=== PATIENT | female | born 1955 | race Caucasian/White ===

== ENCOUNTER 2016-12-05 05:33 | Day surgery (SDC) | payer OTHER ==
[2016-12-05] MEDS ORDERED: LR 1,000 ML ONE (05:57)
[2016-12-05] MEDS ORDERED: PEPCID ONE (05:57)
[2016-12-05] MEDS ORDERED: REGLAN ONE (05:57)
[2016-12-05] MEDS ORDERED: AQUAPHOR OINTMENT TOP SCH (07:00)
[2016-12-05] MEDS ORDERED: BSS OPHTH SOLN ONE (07:07)
[2016-12-05] MEDS ORDERED: CLINDAMYCIN 600 MG/NS 50 ML ONE (07:42)
[2016-12-05] MEDS ORDERED: NORCO-10 ONE (09:54)
[2016-12-05 10:36] VITALS: BP 148/73
--- NOTE | 2016-12-05 11:06 | OPERATIVE NOTE ---
PROCEDURE DATE: 12/05/2016 PREOPERATIVE DIAGNOSIS: Facial rhytids. POSTOPERATIVE DIAGNOSIS: Facial rhytids. PROCEDURE: CO2 laser facial resurfacing. SURGEON: Ricardo Choi MD COMPLICATIONS: None. ANESTHESIA: General with endotracheal intubation. DESCRIPTION OF PROCEDURE: Patient was identified, consented, brought to the operating room, placed in supine position, where general anesthesia was induced with the laser safety endotracheal intubation. The face was prepped and draped in the usual sterile fashion with fire safety concerns in mind. The eyes were protected with a metal scleral shield and balanced salt solution, at the end of the case this shield was removed. The CO2 Ultrapulse laser was used with density packing of 5, spot size for the most part of 9. First pass was 300 mJ. A second pass was 200 mJ and the third pass in selected areas was 100 mJ. The clementina between the uniform first pass was removed with saltwater gauze gently between laser passes. The skin was cleansed similarly. First pass was done ubiquitously, second pass was done at 300 just around the mouth between the small folds marionette area and over the forehead, 200 was used elsewhere including the lower eyelid. The third pass was done just selectively around the edge of the lip with 100 mJ and the second area a third pass was performed in the marionette lines in the corner of mouth at the 200 mJ. She tolerated the procedure well. She was allowed to recover from anesthesia. Amnio sports fix proteins were placed on the skin after saline was used to soak the face. Once this had a chance to soak in for just a few minutes, the Aquaphor was used to soak the face.
[2016-12-05] MEDS ORDERED: DIPRIVAN 1% ONE (11:56)
[2016-12-05] MEDS ORDERED: ZOFRAN ONE (12:20)
[2016-12-05] MEDS ORDERED: DECADRON ONE (12:20)
[2016-12-05] MEDS ORDERED: QUELICIN (DOSE) ONE (12:20)
[2016-12-05] MEDS ORDERED: XYLOCAINE-MPF 2% ONE (12:20)
== END 2016-12-05 10:35 | disposition home or self-care (01) ==
LOC: PAT 05:33
PROVIDERS: ATTEND Otolaryngology Otolaryngology/Facial Plastic Surgery
DX: L98.8 Other specified disorders of the skin and subcutaneous tissue (principal); I10 Essential (primary) hypertension
CPT/HCPCS: J0330; J1100; J2405; J7120; S0077